=== PATIENT | female | born 1965 | race Caucasian/White ===

== ENCOUNTER 2018-07-27 07:45 | Inpatient (IN) | payer OTHER ==
[~2018-07-27] VITALS: Ht 162.6 cm; Wt 76.7 kg
[2018-07-27] MEDS ORDERED: ASPIR 8181 MG (11:20)
[2018-07-27] MEDS ORDERED: PNEU16DI2 (11:20)
[2018-07-27] MEDS ORDERED: HYZAAR 100-251 EACH (11:20)
[2018-08-01] MEDS ORDERED: ULTRAM50 MG PO (15:07)
[2018-08-01] MEDS ORDERED: COLACE100 MG PO (15:07)
[2018-08-01] MEDS ORDERED: GAS-X125 MG PO (15:07)
[2018-08-01] MEDS ORDERED: KEFLEX500 MG PO (15:07)
[2018-08-01] MEDS ORDERED: LOVENOX40 MG/0.4 SUBCUTANEO (15:19)
== END 2018-08-01 15:56 | disposition home or self-care (01) | DRG 742 ==
LOC: OB/GYN 07-29 06:20 → O/R 07-29 06:20 → SURG 07-29 07:00 → OB/GYN 07-29 13:27
PROVIDERS: Surgery; ADMIT Obstetrics & Gynecology Gynecologic Oncology
PROC: 0WQF0ZZ Repair Abdominal Wall, Open Approach (ICD-10-PCS; 2018-07-29)
PROC: 0KXL0Z6 Transfer Left Abdomen Muscle, Transverse Rectus Abdominis Myocutaneous Flap, Open Approach (ICD-10-PCS; 2018-07-29)
PROC: 0KXK0Z6 Transfer Right Abdomen Muscle, Transverse Rectus Abdominis Myocutaneous Flap, Open Approach (ICD-10-PCS; 2018-07-29)
PROC: 0UT70ZZ Resection of Bilateral Fallopian Tubes, Open Approach (ICD-10-PCS; principal; 2018-07-29 07:00)
PROC: 0UT20ZZ Resection of Bilateral Ovaries, Open Approach (ICD-10-PCS; 2018-07-29 07:00)
DX: D25.1 Intramural leiomyoma of uterus (principal); K42.0 Umbilical hernia with obstruction, without gangrene; K43.0 Incisional hernia with obstruction, without gangrene; D25.0 Submucous leiomyoma of uterus; N83.02 Follicular cyst of left ovary; N72 Inflammatory disease of cervix uteri; R97.1 Elevated cancer antigen 125 [CA 125]; N73.6 Female pelvic peritoneal adhesions (postinfective); E11.9 Type 2 diabetes mellitus without complications; I10 Essential (primary) hypertension